=== PATIENT | female | born 1995 | race Caucasian/White ===

== ENCOUNTER 2018-02-16 05:55 | Emergency (ER) | payer BC ==
[~2018-02-16] VITALS: Ht 175.3 cm; Wt 68.0 kg
--- NOTE | ~2018-02-16 | EKG ---
[address] [address] ELECTROCARDIOGRAM REPORT Name: AYAKA ARNOLD [facility]av[id number] Admission: 02/16/18 Attend Phys: Discharge: 02/16/18 Date of : [birth year] Report #: [id number] THIS REPORT FOR: //name// [facility] ED Test Date: 2018-02-16 Test Time: 06:11:02 Pat Name: AYAKA ARNOLD Department: Room: Gender: F Aircraft Technician: JAZMYN : 1995 Requested By: Teresita Romero Order Number: [id number] MD: Rc Penny Measurements Intervals [place] Rate: 73 P: 53 MT: 148 QRS: 51 QRSD: 84 T: 41 QT: 383 QTc: 422 Interpretive Statements Sinus rhythm No previous ECG available for comparison Electronically Signed On 02-16-2018 11:07:01 CDT by Rc Penny [email or web address] <ELECTRONICALLY SIGNED> By: Rc Penny MD 02/16/18 1107 [id number] 0611 Rc Penny MD /EPI
[2018-02-16 06:59] LABS: ABSOLUTE NEUTROPHILS 9.4 thou/uL (1.4-8.2); BASOPHILS 0.3 % (0.0-2.0); EOSINOPHILS 0.4 % (0.0-3.0); HEMATOCRIT 39.2 % (37.0-47.0); HEMOGLOBIN 13.4 gm/dL (12.0-15.0); LYMPHOCYTES 14.7 % (24.0-44.0); MCH 31.3 pg (26.0-34.0); MCHC 34.1 g/dL (28.0-37.0); MCV 91.9 fL (80.0-100.0); MONOCYTES 7.1 % (1.0-8.0); PLATELET COUNT 171 thou/uL (150-400); POLYS 77.5 % (36.0-66.0); RBC 4.26 mil/uL (4.20-5.00); RDW 12.5 % (10.5-14.5); WBC 12.2 thou/uL (4.0-11.0)
[2018-02-16 07:08] LABS: CALCIUM 9.7 mg/dL (8.5-10.1); CREATININE 0.8 mg/dL (0.6-1.0); POTASSIUM 3.7 mmol/L (3.5-5.1)
== END 2018-02-16 09:22 | disposition home or self-care (01) ==
LOC: ER 05:55
PROVIDERS: Student in an Organized Health Care Education/Training Program
DX: S01.112A Laceration without foreign body of left eyelid and periocular area, initial encounter (principal); R55 Syncope and collapse; W18.39XA Other fall on same level, initial encounter; Y93.89 Activity, other specified; Y92.89 Other specified places as the place of occurrence of the external cause; Y99.8 Other external cause status

== ENCOUNTER 2018-07-24 15:14 | Emergency (ER) | payer OTHER ==
[~2018-07-24] VITALS: Ht 175.3 cm; Wt 68.0 kg
[2018-07-24 15:38] LABS: URINE BILIRUBIN NEGATIVE (Negative); URINE BLOOD NEGATIVE (Negative); URINE CLARITY CLEAR; URINE COLOR YELLOW; URINE GLUCOSE-RANDOM* NEGATIVE (Negative); URINE KETONES NEGATIVE (Negative); URINE LEUKOCYTES-REFLEX 3+ (Negative); URINE NITRITE-REFLEX NEGATIVE (Negative); URINE PROTEIN (DIPSTICK) NEGATIVE (Negative); URINE UROBILINOGEN 0.2 E.U./dl (0.2-1.0)
[2018-07-24 15:47] LABS: BACTERIA-REFLEX None Seen /HPF (None Seen); CASTS None Seen /LPF (None Seen); MUCUS >6 Heavy strn/LPF (None Seen); SQUAMOUS >10 Many /LPF (0-3); URINE RBC 0-2 Rare /HPF (0-2); URINE WBC-REFLEX >25 Many /HPF (0-5)
[2018-07-24 15:48] LABS: AMORPHOUS PHOSPHATES Moderate /LPF (None Seen); WBC CLUMPS Few (None Seen)
[2018-07-24] MEDS ORDERED: IBUPROFEN 600600 M1 PO (16:39)
[2018-07-24] MEDS ORDERED: SENNA-DOCUSATE1 EAC1 PO (16:39)
[2018-07-24] MEDS ORDERED: NORCO 5-325 TA1 EACH PO (16:39)
[2018-07-24 16:40] VITALS: BP 116/68
[2018-07-24] MEDS ORDERED: FLAGYL500 M1 PO (17:12)
[2018-07-24] MEDS ORDERED: ACYCLOVIR 400400 MG PO (17:12)
[2018-07-25 09:05] LABS: HSV PCR SOURCE VULVA
[2018-07-26 22:06] LABS: HSV 1 DNA Negative (Negative); HSV 2 DNA Negative (Negative)
== END 2018-07-24 17:23 | disposition home or self-care (01) ==
LOC: ER 15:14
PROVIDERS: Emergency Medicine
DX: N76.0 Acute vaginitis (principal); F17.210 Nicotine dependence, cigarettes, uncomplicated